=== PATIENT | female | born 1955 | race Caucasian/White ===

== ENCOUNTER → 2017-02-03 | Outpatient (CLI) | payer OTHER ==
[~2017-02-03] MED LIST: ALLEGRA180 MG PO; LOPRESSOR 550 MG/TAB PO; NAPROXEN EC500 MG PO; PROVENTIL0.09 MG/A1 IH; SKELAXIN400 MG PO; ZITHROMAX Z PA250 MG PO; [UNRECOGNIZED DRUG - CODE] PO
== END ==
LOC: MC.RAD 10:20
DX: Z12.31 Encounter for screening mammogram for malignant neoplasm of breast (principal)

== ENCOUNTER → 2018-10-18 | Outpatient (CLI) | payer BC | LOC: COL.VAS 10:22 | DX: I08.3 Combined rheumatic disorders of mitral, aortic and tricuspid valves (principal) ==